=== PATIENT | female | born 1995 | race Two or more races ===

== ENCOUNTER 2019-01-20 19:07 | Emergency (ER) | payer OTHER ==
[2019-01-20 19:18] VITALS: BP 125/62
[2019-01-20] MEDS ORDERED: DEXAMETHASONE SOD PHOS INJ 10 MG/1 ML VIAL IM ONE (19:30)
[2019-01-20] MEDS ORDERED: FAMOTIDINE 20 MG TABLET PO ONE (19:31)
--- NOTE | 2019-01-20 19:33 | ER Document Report ---
HPI - HPI Time Seen by Provider: 01/20/19 19:28 Pain Level: 3 Context: Patient is a 23-year-old female who presents the emergency department with a chief complaint of a rash to her face, neck, arms, thighs, and torso. She states that she was at a [employer] last night and every area that paint was on her body, she itches. She took some Benadryl and hydrocortisone cream around 1500 today, with little relief. She denies any shortness of breath, difficulty breathing, throat swelling, or fever. - CONSTITUTIONAL Constitutional: DENIES: Fever - EENT EENT: DENIES: Sore Throat - NEURO Neurology: DENIES: Headache - CARDIOVASCULAR Cardiovascular: DENIES: Chest pain - RESPIRATORY Respiratory: DENIES: Trouble Breathing, Coughing - GASTROINTESTINAL Gastrointestinal: DENIES: Abdominal Pain - REPRODUCTIVE Reproductive: DENIES: : - DERM Skin Color: Normal Skin Problems: Rash - Pruritic Past Medical History - Social History Smoking Status: Unknown if Ever Smoked Family History: Reviewed & Not Pertinent Vertical Provider Document - CONSTITUTIONAL Agree With Documented VS: Yes Exam Limitations: No Limitations - INFECTION CONTROL TRAVEL OUTSIDE OF THE [place] IN LAST 30 DAYS: No - HEENT HEENT: Atraumatic, Normocephalic - NECK Neck: Normal Inspection - RESPIRATORY Respiratory: Breath Sounds Normal, No Respiratory Distress - CARDIOVASCULAR Cardiovascular: Regular Rate, Regular Rhythm Pulses: Normal: Radial - MUSCULOSKELETAL/EXTREMETIES Musculoskeletal/Extremeties: FROM - NEURO Level of Consciousness: Awake, Alert, Appropriate Motor/Sensory: No Motor Deficit, No Sensory Deficit - DERM Integumentary: Warm, Dry, Rash - Erythema, consistent with allergic reaction Course - Re-evaluation Re-evalutation: 01/20/19 19:43 The patient is having an allergic reaction to the pain she was exposed to yesterday at the [employer]. She denies any shortness of breath. Her breath sounds are clear. Her airway is patent. I do not suspect she has any life- threatening etiology at this time. She is being treated with Decadron and Pepcid. She will continue to take Benadryl every 6 hours at home. She will also take Pepcid twice a day at home as needed. I have instructed her to take oatmeal baths at home. She is in agreement with this plan. Verbal discharge instructions were given to the patient. They verbalized understanding. They are stable for discharge. - Vital Signs Vital signs: Temp Pulse Resp BP Pulse Ox 98.5 F 94 16 125/62 100 01/20/19 19:17 01/20/19 19:17 01/20/19 19:17 01/20/19 19:17 01/20/19 19:17 Discharge - Discharge Clinical Impression: Allergic reaction Qualifiers: Encounter type: initial encounter Qualified Code(s): T78.40XA - Allergy, unspecified, initial encounter Condition: Stable Disposition: HOME, SELF-CARE Additional Instructions: You were seen today in the emergency department for an allergic reaction. You were treated with steroids here in the emergency department. You can continue to take your Benadryl, 50 mg every 6 hours. You can also take Pepcid 20 mg twice a day. You received 40 mg here in the emergency department. You can use oatmeal baths to help with the itchiness (Aveeno oatmeal bath). Please follow- up with a primary care provider in regards to this visit. Forms: Return to Work
== END 2019-01-20 19:51 | disposition home or self-care (01) ==
LOC: ER 19:07
DX: T78.49XA Other allergy, initial encounter (principal); R21 Rash and other nonspecific skin eruption; L29.9 Pruritus, unspecified; X58.XXXA Exposure to other specified factors, initial encounter
CPT/HCPCS: 99282; 96372; J1100